=== PATIENT | female | born 1980 | race Caucasian/White ===

== ENCOUNTER 2017-04-22 23:54 | Emergency (ER) | payer SELFPAY ==
[~2017-04-22] VITALS: Ht 167.6 cm; Wt 65.8 kg
[2017-04-23 00:22] VITALS: BP 124/80
[2017-04-23 01:35] LABS: Urine Bilirubin Negative (Negative); Urine Blood Negative /uL (Negative); Urine Color Yellow (Yellow); Urine Glucose Normal (Normal); Urine Mucus FEW (None Seen); Urine Nitrite Negative (Negative); Urine RBC 2 /hpf (0 - 4); Urine Squamous Epithelial Cell FEW /hpf (<5); Urine Urobilinogen Normal (Negative); Urine pH 5.5 (5.0-8.0)
[2017-04-23 01:44] LABS: Urine Ketone 2+ (Negative)
== END 2017-04-23 00:35 | disposition left against medical advice (07) ==
LOC: ER 04-23 00:12
DX: R30.9 Painful micturition, unspecified (principal); M54.5 Low back pain; Z53.21 Procedure and treatment not carried out due to patient leaving prior to being seen by health care provider
CPT/HCPCS: 81001; 81025

== ENCOUNTER 2017-04-23 07:29 | Emergency (ER) | payer MEDICAID, OTHER ==
[~2017-04-23] VITALS: Ht 167.6 cm; Wt 68.0 kg
[2017-04-23 07:37] VITALS: BP 108/76
== END 2017-04-23 10:19 | disposition home or self-care (01) ==
LOC: ER 07:29
DX: N39.0 Urinary tract infection, site not specified (principal); R31.9 Hematuria, unspecified; R42 Dizziness and giddiness; Z88.0 Allergy status to penicillin; Z88.1 Allergy status to other antibiotic agents
CPT/HCPCS: 74176; 81025